=== PATIENT | female | born 1985 | race African-American/Black ===

== ENCOUNTER 2018-03-17 01:37 | Emergency (ER) | payer OTHER ==
[2018-03-17] MEDS: ASPIRIN 325 MG TAB PO (05:22)
[2018-03-17] MEDS: LIDOCAINE/MYLANTA 40 ML BTL PO (05:22)
[2018-03-17 05:23] LABS: ADD MAN DIFF? NO
[2018-03-17 05:25] LABS: WHITE BLOOD COUNT 4.7 10^3/ul (4.8-10.8)
[2018-03-17 05:25] LABS: BASOPHILS % 0.8 % (0.0-2.0); EOSINOPHILS # 0.1 10^3/ul (0.0-0.5); EOSINOPHILS % 1.9 % (0.0-7.0); HEMATOCRIT 39.6 % (37.0-47.0); HEMOGLOBIN 12.5 g/dl (12.0-16.0); LYMPHOCYTES # 1.2 10^3/ul (0.8-2.9); LYMPHOCYTES % 25.5 % (15.0-51.0); MEAN CORPUSCULAR HEMOGLOBIN 23.6 pg (29.0-33.0); MEAN CORPUSCULAR HGB CONC 31.6 g/dl (32.0-37.0); MEAN CORPUSCULAR VOLUME 74.7 fl (82.0-101.0); MEAN PLATELET VOLUME 10.1 fl (7.4-10.4); MONOCYTE # 0.4 10^3/ul (0.3-0.9); MONOCYTES % 7.4 % (0.0-11.0); NEUTROPHILS % 64.2 % (39.0-77.0); PLATELET COUNT 276 10^3/UL (140-415); RED CELL DISTRIBUTION WIDTH 14.6 % (11.5-14.5)
[2018-03-17 07:05] LABS: ANION GAP 12 (8-16); BLOOD UREA NITROGEN 13 mg/dl (7-20); CALCIUM 9.4 mg/dl (8.4-10.2); CARBON DIOXIDE 22 mmol/L (21-31); CHLORIDE 109 mmol/L (97-110); CREATININE 0.84 mg/dl (0.44-1.00); GLUCOSE 93 mg/dl (70-220); SODIUM 138 mmol/L (135-144)
[2018-03-17 07:17] LABS: TROPONIN-I < 0.010 ng/ml (0.000-0.120)
== END 2018-03-17 07:49 | disposition home or self-care (01) ==
LOC: E/R 01:37
DX: R07.89 Other chest pain (principal)
CPT/HCPCS: 36415; 80048; 81025; 84484; 85025; 93005; 99284-25

== ENCOUNTER 2018-08-01 17:11 | Emergency (ER) | payer OTHER ==
[2018-08-01 18:35] LABS: ADD MAN DIFF? NO
[2018-08-01 18:36] LABS: WHITE BLOOD COUNT 6.2 10^3/ul (4.8-10.8)
[2018-08-01 18:36] LABS: BASOPHIL # 0.1 10^3/ul (0.0-0.1); BASOPHILS % 0.8 % (0.0-2.0); EOSINOPHILS # 0.1 10^3/ul (0.0-0.5); EOSINOPHILS % 1.9 % (0.0-7.0); HEMATOCRIT 37.7 % (37.0-47.0); HEMOGLOBIN 11.9 g/dl (12.0-16.0); LYMPHOCYTES # 2.4 10^3/ul (0.8-2.9); LYMPHOCYTES % 38.1 % (15.0-51.0); MEAN CORPUSCULAR HEMOGLOBIN 23.3 pg (29.0-33.0); MEAN CORPUSCULAR HGB CONC 31.6 g/dl (32.0-37.0); MEAN CORPUSCULAR VOLUME 73.8 fl (82.0-101.0); MEAN PLATELET VOLUME 10.5 fl (7.4-10.4); MONOCYTE # 0.7 10^3/ul (0.3-0.9); MONOCYTES % 11.5 % (0.0-11.0); NEUTROPHIL # 2.9 10^3/ul (1.6-7.5); NEUTROPHILS % 47.5 % (39.0-77.0); PLATELET COUNT 264 10^3/UL (140-415); RED BLOOD COUNT 5.11 10^6/ul (4.20-5.40); RED CELL DISTRIBUTION WIDTH 14.5 % (11.5-14.5)
[2018-08-01 18:53] LABS: ANION GAP 8 (5-13); BLOOD UREA NITROGEN 15 mg/dl (7-20); CALCIUM 9.8 mg/dl (8.4-10.2); CARBON DIOXIDE 25 mmol/L (21-31); CHLORIDE 107 mmol/L (97-110); CREATININE 0.87 mg/dl (0.44-1.00); Estimated GFR > 60 mL/min (>60); GLUCOSE 87 mg/dl (70-220); POTASSIUM 4.6 mmol/L (3.5-5.1); SODIUM 140 mmol/L (135-144)
== END 2018-08-01 19:05 | disposition home or self-care (01) ==
LOC: FTE 17:11
DX: R10.2 Pelvic and perineal pain (principal)
CPT/HCPCS: 36415; 76830; 76856; 80048; 81025; 85025; 99284-25